=== PATIENT | male | born 1960 | race Asian ===

== ENCOUNTER 2024-02-24 13:00 | Inpatient (IN) | payer BC ==
[~2024-02-24] VITALS: Ht 170.2 cm; Wt 90.7 kg
[2024-02-24] MEDS ORDERED: iohexoL 350 mgI/mL, 100 ML INFUS..BTL IV ONE (13:23)
[2024-02-24 13:49] VITALS: BP_SYST 186; PULSE 67; RESP 21; TEMP 97.7; O2SAT 98
[2024-02-24 14:02] LABS: BASOPHILS # (AUTO) 0.1 K/uL (0.0-0.2); BASOPHILS % (AUTO) 1.2 % (0.0-2.0); EOSINOPHILS # (AUTO) 0.4 K/uL (0.0-0.4); EOSINOPHILS % (AUTO) 4.4 % (0.0-4.0); HEMATOCRIT 42.7 % (36-54); HEMOGLOBIN 14.8 g/dL (14.0-18.0); LYMPHOCYTES # (AUTO) 2.3 K/uL (1.0-5.5); LYMPHOCYTES % (AUTO) 27.7 % (20.5-51.5); MEAN CORPUSCULAR HEMOGLOBIN 31 pg (27-31); MEAN CORPUSCULAR HGB CONC 35 % (32-36); MEAN CORPUSCULAR VOLUME 89 fL (79.0-98.0); MONOCYTES # (AUTO) 0.7 K/uL (0.0-1.0); MONOCYTES % (AUTO) 8.9 % (1.7-9.3); NEUTROPHILS # (AUTO) 4.8 K/uL (1.8-7.7); NEUTROPHILS % (AUTO) 57.8 % (40.0-70.0); PLATELET COUNT (AUTO) 262 K/uL (130-430); RED BLOOD CELL COUNT(AUTO) 4.82 MIL/uL (4.2-6.2); RED CELL DISTRIBUTION WIDTH 13.4 % (9.0-15.0); WHITE BLOOD COUNT (AUTO) 8.3 K/uL (4.8-10.8)
[2024-02-24 14:20] LABS: INR 1.1 (0.80-1.20); PROTHROMBIN TIME 11.6 SECS (9.5-12.5)
[2024-02-24 14:27] LABS: HEMOGLOBIN A1C 6.5 % (<5.7)
[2024-02-24 14:36] LABS: ANION GAP 6 (5-15); CALCIUM 8.5 mg/dL (8.4-11.0); CARBON DIOXIDE 26 mmol/L (23-29); CHLORIDE 100 mmol/L (98-107); CHOLESTEROL 207 mg/dL (<200); CREATININE 0.97 mg/dL (0.55-1.30); GFR AFRICAN AMERICAN 101 mL/min (>90); GLUCOSE 95 mg/dL (74-106); HDL CHOLESTEROL 34 mg/dL (>45); POTASSIUM 3.7 mmol/L (3.5-5.1); SODIUM SERUM 132 mmol/L (136-145); TRIGLYCERIDES 208 mg/dL (30-150); UREA NITROGEN, BLOOD 9 mg/dL (8-21)
[2024-02-24 14:43] LABS: GFR NON AFRICAN-AMERICAN 84 mL/min (>90)
[2024-02-24] MEDS: ASPIRIN 81 MG TABLET(ECOTRIN) PO ONE (14:49)
[2024-02-24 15:21] LABS: BILIRUBIN,URINE NEGATIVE (NEGATIVE); BLOOD, URINE NEGATIVE (NEGATIVE); CLARITY/URINE CLEAR (CLEAR); COLOR,URINE YELLOW (YELLOW); GLUCOSE,URINE NEGATIVE (NEGATIVE); KETONES,URINE NEGATIVE (NEGATIVE); LEUKOCYTE ESTERASE ,URINE NEGATIVE (NEGATIVE); NITRITE, URINE NEGATIVE (NEGATIVE); PROTEIN URINE NEGATIVE (NEGATIVE); UROBILINOGEN,URINE 0.2 (0.2-1.0)
[2024-02-24 15:38] LABS: BARBITURATE, URINE NEGATIVE (NEG <=200); BENZODIAZEPINE, URINE NEGATIVE (NEG <=150); CANNABINOID, URINE NEGATIVE (NEG <=50); COCAINE, URINE NEGATIVE (NEG <=150); METHAMPHETAMINES SCREEN,URINE NEGATIVE (NEG <=500); OPIATE, URINE NEGATIVE (NEG <=100); PHENCYCLIDINE SCREEN,URINE NEGATIVE (NEG <=25); UR TRICYCLIC ANTIDEPRESSANTS NEGATIVE (NEG <=300); URINE AMPHETAMINE NEGATIVE (NEG <=500); URINE METHADONE NEGATIVE (NEG <=200); URINE OXYCODONE SCREEN NEGATIVE (NEG <=100)
[2024-02-24] MEDS: amLODIPine BESYLATE 5 MG TABLET PO ONE (16:26)
[2024-02-24] MEDS ORDERED: SIMV-341 PO (16:27)
[2024-02-24] MEDS ORDERED: ZOLPIDEM TARTRATE 5 MG TABLET PO PRN (16:30)
[2024-02-24] MEDS ORDERED: POTASSIUM CHLORIDE 20 MEQ TABLET.ER PO PRN (16:30)
[2024-02-24] MEDS ORDERED: NALOXONE HCL 0.4 MG/ML AMP (NARCAN) IVP PRN ×2 (16:30)
[2024-02-24] MEDS ORDERED: MORPHINE 2 MG/ML INJ. SYRINGE IVP PRN ×2 (16:30)
[2024-02-24] MEDS ORDERED: MUPIROCIN 2% TOPICAL OINTMENT 22 GM NS PRN (16:30)
[2024-02-24] MEDS ORDERED: LORazepam 2 MG/ML VIAL IVP PRN (16:30)
[2024-02-24] MEDS ORDERED: ONDANSETRON HCL 4 MG/2 ML VIAL IVP PRN (16:30)
[2024-02-24] MEDS ORDERED: MAGNESIUM SULFATE 50 ML IV PRN (16:30)
[2024-02-24] MEDS ORDERED: DOCUSATE SODIUM 100 MG CAPSULE PO PRN (16:30)
[2024-02-24] MEDS ORDERED: ACETAMINOPHEN 500 MG TABLET PO PRN ×3 (16:45)
[2024-02-24 17:16] VITALS: BP_SYST 182; PULSE 62; RESP 15; TEMP 97.7
[2024-02-24 20:00] VITALS: BP_SYST 187; PULSE 61; RESP 18; TEMP 97.6; O2SAT 97
[2024-02-24] MEDS: cloNIDine HCL 0.1 MG TABLET PO PRN (20:46)
[2024-02-24] MEDS: CLOPIDOGREL BISULFATE 75 MG TABLET PO ONE (20:53)
[2024-02-24 22:43] VITALS: BP_SYST 155; PULSE 55
[2024-02-25] VITALS (19 sets, daily range): BP systolic 127–172; PULSE 51–71; RESP 15–20; TEMP 97.2–97.8; O2SAT 95–100
[2024-02-25 06:37] LABS: BASOPHILS # (AUTO) 0.1 K/uL (0.0-0.2); BASOPHILS % (AUTO) 0.7 % (0.0-2.0); EOSINOPHILS # (AUTO) 0.4 K/uL (0.0-0.4); EOSINOPHILS % (AUTO) 4.6 % (0.0-4.0); HEMOGLOBIN 16.6 g/dL (14.0-18.0); LYMPHOCYTES # (AUTO) 1.9 K/uL (1.0-5.5); LYMPHOCYTES % (AUTO) 23.4 % (20.5-51.5); MEAN CORPUSCULAR HEMOGLOBIN 30 pg (27-31); MEAN CORPUSCULAR HGB CONC 34 % (32-36); MEAN CORPUSCULAR VOLUME 89 fL (79.0-98.0); MONOCYTES # (AUTO) 0.7 K/uL (0.0-1.0); MONOCYTES % (AUTO) 8.5 % (1.7-9.3); NEUTROPHILS % (AUTO) 62.8 % (40.0-70.0); PLATELET COUNT (AUTO) 288 K/uL (130-430); RED BLOOD CELL COUNT(AUTO) 5.49 MIL/uL (4.2-6.2); RED CELL DISTRIBUTION WIDTH 13.4 % (9.0-15.0)
[2024-02-25 07:07] LABS: CALCIUM 9.6 mg/dL (8.4-11.0); CREATININE 0.93 mg/dL (0.55-1.30); POTASSIUM 4.1 mmol/L (3.5-5.1)
[2024-02-25] MEDS ORDERED: DEXTROSE 50% JECT 50 ML DISP.SYRIN IVP PRN (08:15)
[2024-02-25] MEDS ORDERED: INSULIN LISPRO SLIDING SCALE 100 UNITS/ML, 3 ML VIAL (humaLOG) SUBCUT PRN (08:15)
[2024-02-25] MEDS ORDERED: SIMVASTATIN 10 MG TABLET PO SCH (09:00)
[2024-02-25] MEDS ORDERED: amLODIPine BESYLATE 5 MG TABLET PO SCH (09:00)
[2024-02-25] MEDS ORDERED: ROSUVASTATIN CALCIUM 5 MG/TAB (CRESTOR) PO SCH (09:00)
[2024-02-25] MEDS: ASPIRIN 81 MG TABLET(ECOTRIN) PO SCH (09:26)
[2024-02-25] MEDS: CLOPIDOGREL BISULFATE 75 MG TABLET PO SCH (09:26)
[2024-02-25] MEDS: NIFEdipine 30 MG TAB.ER.24 PO SCH (09:27)
[2024-02-25] MEDS: SIMVASTATIN 10 MG TABLET PO ONE (10:58)
[2024-02-25] MEDS: LOSARTAN POTASSIUM 50 MG TABLET (COZAAR) PO ONE (10:59)
[2024-02-26] VITALS: BP_SYST 139; PULSE 69; RESP 18; TEMP 97.8; O2SAT 99
[2024-02-26 04:55] LABS: BASOPHILS # (AUTO) 0.1 K/uL (0.0-0.2); BASOPHILS % (AUTO) 0.8 % (0.0-2.0); EOSINOPHILS # (AUTO) 0.4 K/uL (0.0-0.4); EOSINOPHILS % (AUTO) 4.2 % (0.0-4.0); HEMATOCRIT 49.4 % (36-54); LYMPHOCYTES # (AUTO) 2.2 K/uL (1.0-5.5); LYMPHOCYTES % (AUTO) 25.3 % (20.5-51.5); MEAN CORPUSCULAR HEMOGLOBIN 31 pg (27-31); MEAN CORPUSCULAR HGB CONC 34 % (32-36); MEAN CORPUSCULAR VOLUME 89 fL (79.0-98.0); MONOCYTES # (AUTO) 0.7 K/uL (0.0-1.0); NEUTROPHILS # (AUTO) 5.4 K/uL (1.8-7.7); NEUTROPHILS % (AUTO) 61.7 % (40.0-70.0); PLATELET COUNT (AUTO) 301 K/uL (130-430); RED BLOOD CELL COUNT(AUTO) 5.55 MIL/uL (4.2-6.2); RED CELL DISTRIBUTION WIDTH 13.4 % (9.0-15.0); WHITE BLOOD COUNT (AUTO) 8.7 K/uL (4.8-10.8)
[2024-02-26 05:21] LABS: CALCIUM 9.5 mg/dL (8.4-11.0); CREATININE 0.96 mg/dL (0.55-1.30); POTASSIUM 4.2 mmol/L (3.5-5.1)
[2024-02-26 08:00] VITALS: BP_SYST 162; PULSE 68; RESP 18; TEMP 98.6; O2SAT 100; O2SAT 99
[2024-02-26] MEDS: LOSARTAN POTASSIUM 50 MG TABLET (COZAAR) PO SCH (10:06)
[2024-02-26] MEDS: SIMVASTATIN 10 MG TABLET PO SCH (10:06)
[2024-02-26 11:05] VITALS: BP_SYST 158; PULSE 71; RESP 18; TEMP 98.5; O2SAT 100
[2024-02-26 16:02] VITALS: BP_SYST 156; PULSE 78; RESP 18; TEMP 98.5; O2SAT 100
[2024-02-26 20:00] VITALS: BP_SYST 151; PULSE 60; RESP 18; TEMP 97.8; O2SAT 98
[2024-02-27] VITALS (7 sets, daily range): BP systolic 140–165; PULSE 61–73; RESP 16–18; TEMP 97.3–98.1; O2SAT 97–98
[2024-02-27 04:58] LABS: BASOPHILS # (AUTO) 0.1 K/uL (0.0-0.2); EOSINOPHILS # (AUTO) 0.5 K/uL (0.0-0.4); EOSINOPHILS % (AUTO) 5.7 % (0.0-4.0); HEMOGLOBIN 16.4 g/dL (14.0-18.0); LYMPHOCYTES # (AUTO) 2.6 K/uL (1.0-5.5); LYMPHOCYTES % (AUTO) 29.2 % (20.5-51.5); MEAN CORPUSCULAR HEMOGLOBIN 31 pg (27-31); MEAN CORPUSCULAR HGB CONC 35 % (32-36); MEAN CORPUSCULAR VOLUME 89 fL (79.0-98.0); MONOCYTES # (AUTO) 0.8 K/uL (0.0-1.0); MONOCYTES % (AUTO) 8.7 % (1.7-9.3); NEUTROPHILS # (AUTO) 4.8 K/uL (1.8-7.7); NEUTROPHILS % (AUTO) 55.4 % (40.0-70.0); PLATELET COUNT (AUTO) 296 K/uL (130-430); RED BLOOD CELL COUNT(AUTO) 5.27 MIL/uL (4.2-6.2); RED CELL DISTRIBUTION WIDTH 13.4 % (9.0-15.0); WHITE BLOOD COUNT (AUTO) 8.7 K/uL (4.8-10.8)
[2024-02-27 05:20] LABS: CALCIUM 9.1 mg/dL (8.4-11.0); CREATININE 0.95 mg/dL (0.55-1.30); POTASSIUM 3.8 mmol/L (3.5-5.1)
[2024-02-27] MEDS: amLODIPine BESYLATE 5 MG TABLET PO SCH (09:00)
[2024-02-27] MEDS: amLODIPine BESYLATE 5 MG TABLET PO ONE (10:50)
[2024-02-27] MEDS ORDERED: AMLO5TAB4 PO (12:13)
[2024-02-27] MEDS ORDERED: CLOP75TA32 PO (12:13)
[2024-02-27] MEDS ORDERED: MULT400T13 PO (12:13)
[2024-02-27] MEDS ORDERED: Aspirin Ec PO (12:13)
[2024-02-27] MEDS ORDERED: LIP40 PO (12:13)
[2024-02-27] MEDS ORDERED: LOSA-415 PO (12:13)
[2024-02-27] MEDS: MULTIVITAMINS TAB 1 TABLET PO ONE (16:10)
[2024-02-27] MEDS: HEPARIN SODIUM,PORCINE 5,000 UNITS/ML VIAL SUBCUT SCH (21:11)
[2024-02-28] VITALS: BP_SYST 143; PULSE 79; RESP 16; TEMP 97.4; O2SAT 97
[2024-02-28 07:42] VITALS: BP_SYST 108; PULSE 58; RESP 18; TEMP 97.5; O2SAT 98
[2024-02-28] MEDS: MULTIVITAMINS TAB 1 TABLET PO SCH (08:31)
[2024-02-28 12:00] VITALS: BP_SYST 140; PULSE 60; RESP 18; TEMP 97.7; O2SAT 99
[2024-02-28 16:00] VITALS: BP_SYST 169; PULSE 81; RESP 18; TEMP 98.1; O2SAT 97
[2024-02-28 20:45] VITALS: BP_SYST 138; PULSE 64; RESP 18; TEMP 96.9; O2SAT 97
[2024-02-28] MEDS: ATORVASTATIN 20 MG TABLET PO SCH (21:57)
[2024-02-29] VITALS: BP_SYST 125; PULSE 60; RESP 16; TEMP 96.9
[2024-02-29 08:00] VITALS: BP_SYST 166; PULSE 69; RESP 18; TEMP 97.4; O2SAT 97
[2024-02-29] MEDS ORDERED: METF-379 PO (09:00)
[2024-02-29 12:00] VITALS: BP_SYST 154; PULSE 67; RESP 17; TEMP 96.7; O2SAT 98
[2024-02-29 14:18] VITALS: BP_SYST 137; PULSE 79; RESP 18; TEMP 98.4; O2SAT 96
[2024-02-29 16:11] VITALS: BP_SYST 139; PULSE 69; RESP 17; TEMP 97.7; O2SAT 98
[2024-02-29] MEDS: cloNIDine HCL 0.2 MG TABLET PO ONE (17:51)
[2024-02-29 20:00] VITALS: BP_SYST 131; PULSE 63; RESP 18; TEMP 97.8; O2SAT 100
== END 2024-03-01 | DRG 64 ==
LOC: SED 13:00 → EDBD 13:00 → SMU 14:24 → STU 16:46 → SMU 02-27 13:00
PROVIDERS: ADMIT General Practice; ATTEND General Practice
DX: I63.81 Other cerebral infarction due to occlusion or stenosis of small artery (principal); I21.A1 Myocardial infarction type 2; G81.94 Hemiplegia, unspecified affecting left nondominant side; Z20.822 Contact with and (suspected) exposure to COVID-19; E11.43 Type 2 diabetes mellitus with diabetic autonomic (poly)neuropathy; E78.5 Hyperlipidemia, unspecified; E66.9 Obesity, unspecified; Z79.02 Long term (current) use of antithrombotics/antiplatelets; Z79.899 Other long term (current) drug therapy; Z79.82 Long term (current) use of aspirin; Z68.31 Body mass index [BMI] 31.0-31.9, adult
CPT/HCPCS: 36415; 70450; 70496; 70498; 70551; 71045; 72146; 76536; 80048; 80061; 80307; 81001; 81003; 82948; 83037; 83735; 83880; 84443; 84484; 85025; 85610; 85730; 86886; 86900; 86901; 93005; 93306; 93970; 97110-GO; 97110-GP; 97112-GO; 97112-GP; 97116-GP; 97530-GP; 97535-GO; 99285; G0378; J1644; Q9967